=== PATIENT | female | born 1935 | race American Indian/Alaskan Native ===

== ENCOUNTER 2016-10-13 08:06 | Day surgery (SDC) | payer MEDICARE, OTHER, BC ==
[2016-10-07 13:56] VITALS: BMI 40.1
[2016-10-13] MEDS ORDERED: Propofol 10 mg/ml Inj (20 ML) ONE ×2 (10:15→10:55)
[2016-10-13] MEDS ORDERED: Sodium Chloride 0.9% 1,000 ML IV SCH (11:15)
[2016-10-13 12:19] VITALS: BP 131/77; PULSE 93; RESP 18; TEMP 97.8; O2SAT 97
== END 2016-10-13 13:14 | disposition home or self-care (01) ==
LOC: ENDO 08:06
PROVIDERS: ATTEND Internal Medicine
DX: Z12.11 Encounter for screening for malignant neoplasm of colon (principal); K29.50 Unspecified chronic gastritis without bleeding; K63.5 Polyp of colon; K57.30 Diverticulosis of large intestine without perforation or abscess without bleeding; K64.8 Other hemorrhoids; Z85.028 Personal history of other malignant neoplasm of stomach; Z86.010 Personal history of colon polyps; E11.9 Type 2 diabetes mellitus without complications; I10 Essential (primary) hypertension
CPT/HCPCS: 43239; 45380; 88305; 88342; J2001; J2704; J3010; J7040

== ENCOUNTER 2016-11-17 19:42 | Observation (INO) | payer MEDICARE, OTHER ==
[2016-11-17 21:49] LABS: BASO # 0.04 K/mm3 (0.0-2.0); BASO % 0.6 % (0.0-3.0); EOS # 0.2 (0.0-0.7); EOS % 3.2 % (1.5-5.0); GRAN # 2.19 (1.4-6.5); GRAN % 35.2 % (50.0-68.0); HEMATOCRIT 35.3 % (36.0-48.0); LYMPH # 3.2 (1.2-3.4); LYMPH % 51.1 % (22.0-35.0); MEAN CORPUSCULAR HEMOGLOBIN 27.6 pg (25.0-35.0); MEAN CORPUSCULAR HGB CONC 32.9 g/dl (31.0-37.0); MEAN PLATELET VOLUME 9.5 fl (7.0-11.0); MONO # 0.6 (0.1-0.6); MONO % 9.9 % (1.0-6.0); RED CELL DISTRIBUTION WIDTH 14.2 % (11.5-14.5); WHITE BLOOD COUNT 6.2 10^3/ul (4.5-11.0)
[2016-11-17 21:55] LABS: PH,URINE 7.5 (4.7-8.0); URINE APPEARANCE TURBID (CLEAR); URINE BILIRUBIN NEGATIVE (NEGATIVE); URINE BLOOD LARGE (NEGATIVE); URINE COLOR DARK RED (YELLOW); URINE GLUCOSE (UA) 100 mg/dL (NEGATIVE); URINE KETONE TRACE mg/dL (NEGATIVE); URINE LEUKOCYTE ESTERASE TRACE Leu/uL (NEGATIVE); URINE PROTEIN >=300 mg/dL (<30 mg/dL)
[2016-11-17 21:57] LABS: URINE BACTERIA FEW (NEG); URINE RBC TNTC /hpf (0-2)
[2016-11-17 22:01] LABS: INR 0.97 (0.93-1.08); PARTIAL THROMBOPLASTIN TIME 27.5 Seconds (23.7-30.8)
[2016-11-17 22:02] LABS: ALB/GLOB RATIO 1.1 (1.1-1.8); BILIRUBIN,TOTAL 0.5 mg/dL (0.2-1.3); CALCIUM 9.1 mg/dL (8.4-10.5); POTASSIUM 4.5 mmol/L (3.6-5.0)
[2016-11-18] MEDS ORDERED: Sodium Chloride 0.9% 1,000 ML IV STA (00:22)
--- NOTE | 2016-11-18 00:42 | ED PDOC ---
Arrival/HPI - General Chief Complaint: Female Genitourinary Time Seen by Provider: 11/17/16 20:36 Historian: Patient - History of Present Illness Narrative History of Present Illness (Text): 11/18/16 00:42 An 81 year old female, whose past medical history includes dementia, presents to the emergency department complaining of vaginal bleeding for the past 6 days. Patient denies any abdominal pain, headache, dizziness, nausea, vomiting, diarrhea or any other complaints at this time. PMD: Dr. Turner Time/Duration: < week Symptom Onset: Sudden Symptom Course: Unchanged Activities at Onset: Rest Context: Home Past Medical History - Provider Review Nursing Documentation Reviewed: Yes - Cardiac Hx Hypertension: Yes - Pulmonary Hx Respiratory Disorders: No - Neurological Hx Neurological Disorder: Yes Other/Comment: NEUROPATHY - HEENT Hx HEENT Disorder: Yes Hx Glaucoma: Yes - Renal Hx Renal Disorder: No - Endocrine/Metabolic Hx Diabetes Mellitus Type 2: Yes Hx Hypothyroidism: Yes - Hematological/Oncological Hx Anemia: Yes Hx Blood Transfusions: No Hx Blood Transfusion Reaction: No - Musculoskeletal/Rheumatological Hx Musculoskeletal Disorders: Yes Hx Arthritis: Yes - Gastrointestinal Hx Gastrointestinal Disorders: Yes Other/Comment: STOMACH CA - Genitourinary/Gynecological Hx Genitourinary Disorders: No - Psychiatric Hx Psychophysiologic Disorder: No Hx Emotional Abuse: No Hx Physical Abuse: No Hx Substance Use: No - Surgical History Hx Orthopedic Surgery: Yes Other/Comment: ABD R/T CA - Anesthesia Hx Anesthesia: Yes - Suicidal Assessment Feels Threatened In Home Enviroment: No Family/Social History - Physician Review Nursing Documentation Reviewed: Yes Family/Social History: No Known Family HX Smoking Status: Never Smoked Hx Alcohol Use: Yes (SOCIAL) Frequency of alcohol use: Socially Hx Substance Use: No Allergies/Home Meds Allergies/Adverse Reactions: Allergies Sulfa (Sulfonamide Antibiotics) Allergy (Severe, Verified 11/17/16 20:25) HIVES LOBSTER Allergy (Severe, Uncoded 11/17/16 20:25) HIVES Home Medications: Home Meds Medication Instructions Recorded Confirmed Aspirin [Adult Low Dose Aspirin EC] 81 mg PO QAM 10/08/16 11/17/16 Ferrous Sulfate 65 mg PO QAM 10/08/16 11/17/16 Fluticasone Nasal [Flonase] 2 spr NS DAILY PRN 10/08/16 11/17/16 Gabapentin 800 mg PO HS 10/08/16 11/17/16 Levothyroxine Sodium [Unithroid] 25 mcg PO QAM 10/08/16 11/17/16 Lovastatin 40 mg PO QAM 10/08/16 11/17/16 amLODIPine [Norvasc] 2.5 mg PO QAM 10/08/16 11/17/16 hydroCHLOROthiazide [Microzide] 12.5 mg PO QAM 10/08/16 11/17/16 metFORMIN [glucOPHAGE] 500 mg PO BID 10/08/16 11/17/16 Review of Systems - Physician Review All systems were reviewed & negative as marked: Yes - Review of Systems Gastrointestinal: absent: Abdominal Pain, Diarrhea, Nausea, Vomiting Genitourinary Female: Vaginal Bleeding Neurological: absent: Headache, Dizziness Physical Exam Vital Signs Reviewed: Yes Vital Signs Temp Pulse Resp BP Pulse Ox 11/18/16 00:17 99 H 18 149/86 95 11/17/16 23:10 105 H 18 119/75 96 11/17/16 20:27 98.4 F 105 H 17 138/76 95 Temperature: Afebrile Blood Pressure: Normal Pulse: Tachycardic Respiratory Rate: Normal Appearance: Positive for: Well-Appearing, Non-Toxic, Comfortable Pain Distress: None Mental Status: Positive for: Alert and Oriented X 3 - Systems Exam Head: Present: Atraumatic, Normocephalic Pupils: Present: PERRL Extroacular Muscles: Present: EOMI Conjunctiva: Present: Normal Mouth: Present: Moist Mucous Membranes Neck: Present: Normal Range of Motion Respiratory/Chest: Present: Clear to Auscultation, Good Air Exchange. No: Respiratory Distress, Accessory Muscle Use Cardiovascular: Present: Regular Rate and Rhythm, Normal S1, S2. No: Murmurs Abdomen: Present: Normal Bowel Sounds. No: Tenderness, Distention, Peritoneal Signs Genitourinary/Pelvic Exam: Present: Other (blood) Back: Present: Normal Inspection Upper Extremity: Present: Normal Inspection. No: Cyanosis, Edema Lower Extremity: Present: Normal Inspection. No: Edema Neurological: Present: GCS=15, CN II-XII Intact, Speech Normal Skin: Present: Warm, Dry, Normal Color. No: Rashes Psychiatric: Present: Alert, Oriented x 3, Normal Insight, Normal Concentration Medical Decision Making ED Course and Treatment: 11/18/16 00:39 Impression: An 81 year old female with vaginal bleeding. Plan: -- labs -- Urinalysis -- IV fluids, Tylenol -- Reassess and disposition Progress Notes: Spoke with OBGYN Dr. Solares. - Lab Interpretations Lab Results: 11/17/16 21:35 11/17/16 21:35 Lab Results 11/17/16 21:35: Beta HCG, Quant < 2.39 11/17/16 21:35: Sodium 144, Potassium 4.5, Chloride 105, Carbon Dioxide 27, Anion Gap 17, BUN 17, Creatinine 1.1, Est GFR ( Amer) 58, Est GFR (Non- Af Amer) 48, Random Glucose 214 H, Calcium 9.1, Total Bilirubin 0.5, AST 53 H, ALT 20, Alkaline Phosphatase 96, Total Protein 8.0, Albumin 4.1, Globulin 3.8, Albumin/Globulin Ratio 1.1 11/17/16 21:35: Urine Color Dark red, Urine Appearance Turbid, Urine pH 7.5, Ur Specific Garrett 1.025, Urine Protein >=300 H, Urine Glucose (UA) 100 H, Urine Ketones Trace H, Urine Blood Large H, Urine Nitrate Positive H, Urine Bilirubin Negative, Urine Urobilinogen 1.0 H, Ur Leukocyte Esterase Trace H, Urine RBC Tntc, Urine WBC 2 - 5, Urine Bacteria Few, Urine HCG, Qual Negative 11/17/16 21:35: PT 10.5, INR 0.97, APTT 27.5 11/17/16 21:35: WBC 6.2, RBC 4.20, Hgb 11.6 L, Hct 35.3 L, MCV 84.0, MCH 27.6, MCHC 32.9, RDW 14.2, Plt Count 214, MPV 9.5, Gran % 35.2 L, Lymph % (Auto) 51.1 H, [place] % (Auto) 9.9 H, Eos % (Auto) 3.2, Baso % (Auto) 0.6, Gran # 2.19, Lymph # 3.2, [place] # 0.6, Eos # 0.2, Baso # 0.04 I have reviewed the lab results: Yes - Medication Orders Current Medication Orders: Acetaminophen (Tylenol 325mg Tab) 650 mg PO Q4H PRN PRN Reason: Pain, Mild (1-3) Sodium Chloride (Sodium Chloride 0.9%) 1,000 mls @ 100 mls/hr IV .Q10H STA Stop: 11/18/16 10:21 - Scribe Statement The provider has reviewed the documentation as recorded by the Radhaibe Perry Gutierrez Provider Scribe Attestation: All medical record entries made by the Scribe were at my direction and personally dictated by me. I have reviewed the chart and agree that the record accurately reflects my personal performance of the history, physical exam, medical decision making, and the department course for this patient. I have also personally directed, reviewed, and agree with the discharge instructions and disposition. Disposition/Present on Arrival - Present on Arrival History of DVT/PE: No History of Uncontrolled Diabetes: Yes Urinary Catheter: No History of Decub. Ulcer: No History Surgical Site Infection Following: None - Disposition
[2016-11-18] MEDS ORDERED: Levothyroxine 25 MCG TAB PO SCH (06:00)
[2016-11-18 06:27] VITALS: RESP 20; BMI 40.4
[2016-11-18 07:15] LABS: BASO # 0.04 K/mm3 (0.0-2.0); BASO % 0.5 % (0.0-3.0); EOS # 0.2 (0.0-0.7); EOS % 2.5 % (1.5-5.0); GRAN # 2.85 (1.4-6.5); GRAN % 39.1 % (50.0-68.0); HEMATOCRIT 32.3 % (36.0-48.0); LYMPH # 3.5 (1.2-3.4); LYMPH % 47.4 % (22.0-35.0); MEAN CELL VOLUME 83.5 fl (80.0-105.0); MEAN CORPUSCULAR HEMOGLOBIN 27.1 pg (25.0-35.0); MEAN CORPUSCULAR HGB CONC 32.5 g/dl (31.0-37.0); MEAN PLATELET VOLUME 9.3 fl (7.0-11.0); MONO # 0.8 (0.1-0.6); MONO % 10.5 % (1.0-6.0); RED CELL DISTRIBUTION WIDTH 14.1 % (11.5-14.5); WHITE BLOOD COUNT 7.3 10^3/ul (4.5-11.0)
[2016-11-18 07:32] LABS: ALB/GLOB RATIO 1.1 (1.1-1.8); ALKALINE PHOSPHATASE 87 U/L (38-126); ALT/SGPT 41 U/L (7-56); AST/SGOT 43 U/L (14-36); BILIRUBIN,TOTAL 0.5 mg/dL (0.2-1.3); BLOOD UREA NITROGEN 16 mg/dL (7-21); CALCIUM 9.1 mg/dL (8.4-10.5); CARBON DIOXIDE 28 mmol/L (21-33); CHLORIDE 105 mmol/L (95-110); GFR AFRICAN-AMERICAN > 60; GLUCOSE,RANDOM 219 mg/dL (70-110); POTASSIUM 4.2 mmol/L (3.6-5.0); SODIUM 146 mmol/L (132-148); TOTAL PROTEIN 7.4 g/dL (5.8-8.3)
[2016-11-18 08:24] VITALS: PULSE 99; TEMP 98.2; O2SAT 98
[2016-11-18] MEDS ORDERED: Barium Sulfate Susp 2.1% w/v, 2.0% w/w 450 mL Bottle PO ONE (08:30)
[2016-11-18 09:49] VITALS: BP 141/86
[2016-11-18] MEDS ORDERED: Fluticasone Nasal 50 mcg/Spray NS SCH (10:00)
--- NOTE | 2016-11-18 11:47 | HP ---
HISTORY OF PRESENT ILLNESS: I was called by the patient yesterday and she was telling she is having vaginal bleeding, I sent her to the emergency room. She eventually got to the emergency room late last night with vaginal bleeding. She did see the ENVIRONMENTAL COMPLIANCE MANAGER doctor the day before. She did not have any bleeding at that time. She is an 81-year-old female with past medical history of vaginal bleeding, no abdominal pain, it was of sudden onset. She has hypertension, neuropathy, diabetes, hypothyroidism, arthritis, history of stomach cancer. She had abdominal radiation therapy. She had orthopedic surgery. FAMILY HISTORY: Has diabetes in the family. SOCIAL HISTORY: She never smoked, social alcohol. No drugs. ALLERGIES: SHE HAS ALLERGIES TO SULFA AND MOISTURE. MEDICATIONS: She takes aspirin, iron, Flonase, Gabapentin, Synthroid, Lovastatin for high cholesterol, Norvasc for hypertension, Microzide and Glucophage for diabetes. REVIEW OF SYSTEMS: No acute vision changes or hearing changes. No sore throat. No neck hooper. No chest pain or palpitations. No shortness of breath or coughing of mucus. No abdominal pain, nausea, vomiting, constipation, diarrhea. There is vaginal bleeding, painless. No extremity issues. No sweating. No anxiety or depression. PHYSICAL EXAMINATION: VITAL SIGNS: She has 99 pulse, 18 respiratory rate, 149/86 blood pressure, 95% O2 sat. She has a 98.4 temperature. HEENT: Head is atraumatic, normocephalic. Well appearing, comfortable, alert and oriented x3. Pupils are equally reactive to light and accommodation. Extraocular muscles are intact. Throat is moist. NECK: Supple. HEART: Regular rate. Normal S1 and S2. LUNGS: Clear to auscultation bilaterally. ABDOMEN: Soft and nontender. Positive bowel sounds. Obese. EXTREMITIES: Have no edema. NEUROLOGIC: GCS is 15. Cranial nerves II through XII are grossly intact. SKIN: Warm and dry. She is having vaginal bleeding, painless; it is pretty profuse. We called an ENVIRONMENTAL COMPLIANCE MANAGER. IV fluids. She is currently on iron, Flonase, Glucophage, Microzide, Neurontin, Norvasc, IV fluids, Synthroid, Tylenol. LABORATORY DATA: She has a of 7.3, hemoglobin was 11.6, it is down to 10.5; hematocrit is 32.3; platelets are 209. INR is 0.97. She has 146 sodium, potassium is 4.2, BUN 16, creatinine 1, GFR is 53, sugar is down to 219. We will put her on coverage. Calcium is 9.1, total alexey is 0.5, AST is 43, ALT 41, alkaline phosphatase is 87, total protein is 7.4, albumin is 3.8. Urine with large blood, positive nitrites, few bacteria. She did a consult with gynecology. She will be on her medications, IV fluids. We are checking on her labs. We will get physical therapy involved too. She has got profuse vaginal bleeding. Prieto Turner DO MTDD
[2016-11-18] MEDS: Insulin Reg-HIGH-Coverage SC SCH ×2 (12:28→17:27)
--- NOTE | 2016-11-18 13:36 | CP.PCM.CON ---
History of Present Illness - History of Present Illness History of Present Illness: 81-year-old female with acute onset of vaginal bleeding yesterday. 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 Patient reports bleeding has lightened somewhat since yesterday. Otherwise, patient without complaints. Patient denies any shortness of breath, dizziness, lightheadedness, syncope, chest pain or shortness of breath. Past Patient History - Past Social History Smoking Status: Never Smoked - CARDIAC Hx Hypertension: Yes - PULMONARY Hx Respiratory Disorders: No - NEUROLOGICAL Hx Neurological Disorder: Yes Other/Comment: NEUROPATHY - HEENT Hx HEENT Problems: Yes Hx Glaucoma: Yes - RENAL Hx Chronic Kidney Disease: No - ENDOCRINE/METABOLIC Hx Diabetes Mellitus Type 2: Yes Hx Hypothyroidism: Yes - HEMATOLOGICAL/ONCOLOGICAL Hx Anemia: Yes - MUSCULOSKELETAL/RHEUMATOLOGICAL Hx Musculoskeletal Disorders: Yes Hx Arthritis: Yes Hx Falls: No - GASTROINTESTINAL Hx Gastrointestinal Disorders: Yes Other/Comment: STOMACH CA with surgery (over 10 years ago) no chemo no radiation - GENITOURINARY/GYNECOLOGICAL Hx Genitourinary Disorders: No - PSYCHIATRIC Hx Psychophysiologic Disorder: No Hx Emotional Abuse: No Hx Physical Abuse: No Hx Substance Use: No - SURGICAL HISTORY Hx Orthopedic Surgery: Yes Other/Comment: ABD R/T CA - ANESTHESIA Hx Anesthesia: Yes Meds Allergies/Adverse Reactions: Allergies Allergy/AdvReac Type Severity Reaction Status Date / Time Sulfa (Sulfonamide Allergy Severe HIVES Verified 11/17/16 20:25 Antibiotics) LOBSTER Allergy Severe HIVES Uncoded 11/17/16 20:25 - Medications Medications: Current Medications Acetaminophen (Tylenol 325mg Tab) 650 mg PO Q4H PRN PRN Reason: Pain, Mild (1-3) Amlodipine Besylate (Norvasc) 2.5 mg PO DAILY COUNTS INCLUDE 234 BEDS AT THE [facility] Last Admin: 11/18/16 09:40 Dose: 2.5 mg Ferrous Sulfate (Feosol) 324 mg PO DAILY ANITA Last Admin: 11/18/16 09:40 Dose: 324 mg Fluticasone Propionate (Flonase) 2 actuation NS DAILY COUNTS INCLUDE 234 BEDS AT THE [facility] Gabapentin (Neurontin) 500 mg PO DAILY ANITA PRN Reason: Protocol Last Admin: 11/18/16 09:40 Dose: 500 mg Gabapentin (Neurontin) 800 mg PO HS ANITA PRN Reason: Protocol Gabapentin (Neurontin) 200 mg PO HS COUNTS INCLUDE 234 BEDS AT THE [facility] Hydrochlorothiazide (Microzide) 12.5 mg PO DAILY COUNTS INCLUDE 234 BEDS AT THE [facility] Last Admin: 11/18/16 09:40 Dose: 12.5 mg Insulin Human Regular (Humulin R High) 0 units SC ACHS COUNTS INCLUDE 234 BEDS AT THE [facility] PRN Reason: Protocol Last Admin: 11/18/16 12:28 Dose: Not Given Levothyroxine Sodium (Synthroid) 25 mcg PO 0600 COUNTS INCLUDE 234 BEDS AT THE [facility] Metformin HCl (Glucophage) 500 mg PO BID COUNTS INCLUDE 234 BEDS AT THE [facility] Last Admin: 11/18/16 09:33 Dose: Not Given Physical Exam - Constitutional Appears: Well, No Acute Distress - Head Exam Head Exam: ATRAUMATIC - Eye Exam Eye Exam: Normal appearance, PERRL - ENT Exam ENT Exam: Mucous Membranes Moist - Neck Exam Neck exam: Positive for: Normal Inspection - Respiratory Exam Respiratory Exam: Clear to Auscultation Bilateral, NORMAL BREATHING PATTERN - Cardiovascular Exam Cardiovascular Exam: REGULAR RHYTHM - GI/Abdominal Exam GI & Abdominal Exam: Soft. absent: Distended, Tenderness - Exam Additional comments: Only external pelvic exam completed. Small amount of blood at exterior vagina. No active bleeding noted. Results - Vital Signs Recent Vital Signs: Last Vital Signs Temp 98.2 F 11/18/16 07:30 Pulse 99 H 11/18/16 07:30 Resp 20 11/18/16 07:30 BP 141/86 11/18/16 09:40 Pulse Ox 98 11/18/16 07:30 - Labs Result Diagrams: 11/18/16 07:09 11/18/16 07:09 Labs: Laboratory Results - last 24 hr 11/18/16 11/18/16 11/18/16 07:06 07:09 07:09 WBC 7.3 RBC 3.87 Hgb 10.5 L Hct 32.3 L MCV 83.5 MCH 27.1 MCHC 32.5 RDW 14.1 Plt Count 209 MPV 9.3 Gran % 39.1 L Lymph % (Auto) 47.4 H [place] % (Auto) 10.5 H Eos % (Auto) 2.5 Baso % (Auto) 0.5 Gran # 2.85 Lymph # 3.5 H [place] # 0.8 H Eos # 0.2 Baso # 0.04 Sodium Potassium Chloride Carbon Dioxide Anion Gap BUN Creatinine Est GFR ( Amer) Est GFR (Non-Af Amer) POC Glucose (mg/dL) 246 H Random Glucose Calcium Total Bilirubin AST ALT Alkaline Phosphatase Total Protein Albumin Globulin Albumin/Globulin Ratio TSH 3rd Generation 1.76 Blood Type Blood Type Confirm Antibody Screen BBK History Checked 11/18/16 11/18/16 11/18/16 07:09 07:09 07:34 WBC RBC Hgb Hct MCV MCH MCHC RDW Plt Count MPV Gran % Lymph % (Auto) [place] % (Auto) Eos % (Auto) Baso % (Auto) Gran # Lymph # [place] # Eos # Baso # Sodium 146 Potassium 4.2 Chloride 105 Carbon Dioxide 28 Anion Gap 17 BUN 16 Creatinine 1.0 Est GFR ( Amer) > 60 Est GFR (Non-Af Amer) 53 POC Glucose (mg/dL) Random Glucose 219 H Calcium 9.1 Total Bilirubin 0.5 AST 43 H ALT 41 Alkaline Phosphatase 87 Total Protein 7.4 Albumin 3.8 Globulin 3.6 Albumin/Globulin Ratio 1.1 TSH 3rd Generation Blood Type O POSITIVE Blood Type Confirm O POSITIVE Antibody Screen Negative BBK History Checked No verified bt 11/18/16 11:40 WBC RBC Hgb Hct MCV MCH MCHC RDW Plt Count MPV Gran % Lymph % (Auto) [place] % (Auto) Eos % (Auto) Baso % (Auto) Gran # Lymph # [place] # Eos # Baso # Sodium Potassium Chloride Carbon Dioxide Anion Gap BUN Creatinine Est GFR ( Amer) Est GFR (Non-Af Amer) POC Glucose (mg/dL) 326 H Random Glucose Calcium Total Bilirubin AST ALT Alkaline Phosphatase Total Protein Albumin Globulin Albumin/Globulin Ratio TSH 3rd Generation Blood Type Blood Type Confirm Antibody Screen BBK History Checked Assessment & Plan - Assessment and Plan (Free Text) Assessment: Postmenopausal bleeding. No signs or symptoms of acute anemia at this time. Plan: I discussed plan with patient as well as patient's daughter and patient's primary physician. Plan to check pelvic ultrasound today and will discharge patient after ultrasound completed. Patient's hemoglobin and hematocrit are stable. I gave patient my office contact information and patient will follow-up in my office in 2 days. All patient questions answered. - Date & Time Date: 11/18/16 Time: 13:36
[2016-11-18 13:39] LABS: BASO # 0.05 K/mm3 (0.0-2.0); BASO % 0.5 % (0.0-3.0); EOS % 0.3 % (1.5-5.0); GRAN # 5.49 (1.4-6.5); HEMATOCRIT 32.6 % (36.0-48.0); LYMPH # 3.2 (1.2-3.4); LYMPH % 33.2 % (22.0-35.0); MEAN CELL VOLUME 83.8 fl (80.0-105.0); MEAN CORPUSCULAR HEMOGLOBIN 27.2 pg (25.0-35.0); MEAN CORPUSCULAR HGB CONC 32.5 g/dl (31.0-37.0); MEAN PLATELET VOLUME 9.6 fl (7.0-11.0); MONO # 0.8 (0.1-0.6); RED CELL DISTRIBUTION WIDTH 14.3 % (11.5-14.5); WHITE BLOOD COUNT 9.5 10^3/ul (4.5-11.0)
--- NOTE | 2016-11-18 14:25 | CT ---
PROCEDURE: CT Abdomen and Pelvis without contrast HISTORY: vaginal bleeding COMPARISON: None. TECHNIQUE: Helical CT of the abdomen and pelvis was performed following oral contrast administration only. Intravenous contrast was not administered as per referring physician request . Contrast dose: None. Radiation dose: Total exam DLP = 1153.08 mGy-cm. This CT exam was performed using one or more of the following dose reduction techniques: Automated exposure control, adjustment of the mA and/or kV according to patient size, and/or use of iterative reconstruction technique. FINDINGS: LOWER THORAX: A small hiatal hernia is identified with the lung base sections otherwise unremarkable as imaged. LIVER: Unremarkable. No gross lesion or ductal dilatation. GALLBLADDER AND BILE DUCTS: Unremarkable. PANCREAS: Unremarkable. No gross lesion or ductal dilatation. SPLEEN: Unremarkable. ADRENALS: Unremarkable. No mass. KIDNEYS AND URETERS: Unremarkable. No hydronephrosis. No solid mass. VASCULATURE: Unremarkable. No aortic aneurysm. BOWEL: Unremarkable. No obstruction. No gross mural thickening. APPENDIX: Normal appendix. PERITONEUM: There is a small umbilical/ periumbilical hernia or hernia is with the largest containing a small loop of small bowel which is nonobstructed. LYMPH NODES: Unremarkable. No enlarged lymph nodes. BLADDER: Bladder is distended with trace gas in nondependent portion and large hyperintense ovoid structure within the lumen suggestive a large hematoma measuring 8.0 x 7.3 x 5.2 cm. Underlying neoplasm is not excluded. Infectious process is possible as well as inflammatory etiology. Urological consultation is advised. Consider follow-up ultrasonography. REPRODUCTIVE: Unremarkable. 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 OTHER FINDINGS: None. IMPRESSION: 1. A large hematoma is identified with measuring 8.0 cm at the central urinary bladder lumen. Underlying neoplasm or infection is not excluded. Further clinical correlation is advised as inflammatory etiologies are also possible. No significant lymphadenopathy abdomen pelvis. 2. A small umbilical a small series of umbilical/periumbilical hernia is identified with the largest containing short segment of non incarcerated small bowel with the neck measuring 7.4 cm. 3. Other lesser findings as discussed above.
--- NOTE | 2016-11-18 14:42 | US ---
HISTORY: vaginal bleeding. 81-year-old female COMPARISON: 11/18/[address] abdomen and pelvis ; transvaginal ultrasound 05/21/2015 TECHNIQUE: Transvaginal FINDINGS: UTERUS: History of prior hysterectomy 30 years ago ENDOMETRIUM: History of prior hysterectomy 30 years ago CERVIX: Identification of the cervix vaginal cuff limited RIGHT OVARY: No normal-appearing right ovary visualized LEFT OVARY: No normal appearing left ovary visualized FREE FLUID: No significant free fluid noted. OTHER FINDINGS: A fairly central, large heterogeneous pelvic mostly solid-appearing mass without significant vascularity is noted. The mass measures 8.0 x 6.5 by [address] this projects central over the bladder. On some of the current images, series 1, image 8, the inferior tip of the bladder may be projecting above this heterogeneous mostly solid appearing pelvic mass with a small amount of fluid surrounding it. IMPRESSION: Large central pelvic mass -mostly solid-appearing. An adnexal mass likely ovarian in origin is believe most likely. Which ovary is indeterminate. Any ovarian origin would likely be extremely exophytic given the CT appearance. Some extension into the bladder base is possible. Director Of Restaurant Operations consultation recommended . Consider cystoscopy prior to that . CT-suggests some intraluminal bladder gas- fistulous communication needs to be considered . The precise origin of this large pelvic mass is indeterminate
== END 2016-11-18 17:00 | disposition home or self-care (01) ==
LOC: ED 19:42 → INTOOBSV 23:31 → ERH 23:31 → 5RNO 11-18 00:53
PROVIDERS: ADMIT Family Medicine; ATTEND Family Medicine
DX: N95.0 Postmenopausal bleeding (principal); E03.9 Hypothyroidism, unspecified; E11.40 Type 2 diabetes mellitus with diabetic neuropathy, unspecified; F03.90 Unspecified dementia, unspecified severity, without behavioral disturbance, psychotic disturbance, mood disturbance, and anxiety; H40.9 Unspecified glaucoma; I10 Essential (primary) hypertension; M19.90 Unspecified osteoarthritis, unspecified site; Z79.82 Long term (current) use of aspirin; Z79.899 Other long term (current) drug therapy; Z83.3 Family history of diabetes mellitus; Z85.028 Personal history of other malignant neoplasm of stomach; Z88.2 Allergy status to sulfonamides; Z91.013 Allergy to seafood; R00.0 Tachycardia, unspecified; R40.2412 Glasgow coma scale score 13-15, at arrival to emergency department; Z92.3 Personal history of irradiation; D64.9 Anemia, unspecified
CPT/HCPCS: 36415; 74176; 76830; 80053; 81001; 82948; 84443; 84702; 84703; 85025; 85610; 85730; 86850; 86900; 87086; 99284; G0378

== ENCOUNTER 2016-11-27 07:51 | Day surgery (SDC) | payer MEDICARE, OTHER ==
[2016-11-27 08:26] VITALS: BMI 40.4
[2016-11-27] MEDS ORDERED: Lidocaine 1% Inj (20ml) ONE (10:34)
[2016-11-27] MEDS ORDERED: Propofol 10 mg/ml Inj (20 ML) ONE (10:34)
[2016-11-27] MEDS ORDERED: Sevoflurane - Inhalation Anesthetic Liq (250 ml) ONE (10:34)
[2016-11-27] MEDS ORDERED: cefTRIAXone (Rocephin) 1 gm Inj ONE (11:31)
[2016-11-27] MEDS ORDERED: Lactated Ringer's 1,000 ML IV SCH (12:15)
[2016-11-27 13:24] VITALS: RESP 18; TEMP 97.7; O2SAT 100
[2016-11-27 14:17] VITALS: BP 150/74; PULSE 92
--- NOTE | 2016-11-27 15:53 | OP ---
PROCEDURE DATE: 11/27/2016 PREOPERATIVE DIAGNOSES: Gross hematuria and bladder mass. POSTOPERATIVE DIAGNOSES: Gross hematuria and cystitis. PROCEDURE: Cystoscopy, bladder irrigation, evacuation of clots, bladder biopsies and fulguration. ATTENDING SURGEON: Dr. Yusuf Dupont. TYPE OF ANESTHESIA: General. SPECIMENS: Multiple bladder biopsies sent to pathology, clot and debris sent from the bladder to pathology. DRAINS: The 20-Indian two-way Marley catheter. COMPLICATIONS: There were none. OPERATIVE FINDINGS: After informed consent was obtained, the patient was taken to the operating room and placed on the operating table. Anesthesia was administered. The patient was placed in dorsolithotomy position and prepped and draped in usual sterile fashion. The patient received intravenous antibiotics prior to the start of the procedure. A 21-Indian cystoscope was passed under direct vision into the bladder and a full survey inspection was performed. There was a large amount of debris in the bladder and some small amount of clot. This was able to be irrigated out of the bladder and further inspection was made. It was still difficult to visualize as there appeared to be some oozing from the bladder wall and at this point the 21-Indian cystoscope was removed. A 26-Indian resectoscope with visualizing obturator was passed into the bladder and further irrigation was done. Visualization was now easy and a full inspection of the bladder was performed. There were no stones, large papillary tumors or other foreign bodies noted. There was diffuse erythema with some raised patches of erythematous mucosa which were actively bleeding. There was extensive squamous metaplasia on the trigone extending onto the posterior wall. Both ureteral orifices were visualized and appeared within normal limits. At this point again, the bladder was irrigated through the resectoscope. Small amount of clot and debris was removed. This was all sent together as specimen. A cold cup biopsy forceps was then passed through the working channel of the resectoscope. Biopsies of the raised erythematous mucosa on the posterior wall, left wall and trigone were taken and sent to pathology as specimen. A Bugbee electrode was then passed and the biopsy sites were fulgurated along with areas of surrounding normal mucosa. There were some other areas which had some mild hemorrhaging. These were also cauterized using the Bugbee electrode. There was no obvious papillary tumor, possibility of severe cystitis or possibly carcinoma in situ and the specimens were taken from the bilingual sales representative areas. The final inspection was made, again there was no papillary tumor. There was complete hemostasis from the biopsy and fulguration sites. At this point, the procedure was completed. The bladder was drained. The resectoscope sheath was removed. A 20-Indian two-way Marley catheter was passed and placed to straight bladder drainage. The patient tolerated the procedure well. She was taken to the recovery room awake and in stable condition. Yusuf Dupont MD
== END 2016-11-27 14:20 | disposition home or self-care (01) ==
LOC: SDS 07:51
PROVIDERS: ATTEND Urology
DX: N30.91 Cystitis, unspecified with hematuria (principal); I10 Essential (primary) hypertension
CPT/HCPCS: 52001; 52204; 88304; 88305; J0696; J2704; J3010; J7120 ×2